=== PATIENT | female | born 1980 | race Two or more races ===

== ENCOUNTER → 2025-03-05 | Outpatient (CLI) | payer MEDICAID, SELFPAY ==
--- NOTE | 2025-03-05 15:00 | XR_ITS ---
Examination: CT abdomen with intravenous contrast CT pelvis with intravenous contrast 2-D coronal reconstructions 2-D sagittal reconstructions Date and time of exam:March 05, 2025, 1748 hours INDICATIONS: Bilateral flank pain beginning 3 months ago. CTDI: vol (mGy) 11.5 DLP: (mGycm) 675 Technique: Multiple axial sections of the abdomen and pelvis have been obtained. 64 slice high-resolution scanner used. 3 mm axial sections have been obtained, post intravenous injection 60 cc [id number]. 2-D sagittal, coronal reconstructions obtained. Low dose protocols were performed. One or more of the following dose reduction techniques were used; automated exposure control, adjustment of the mA and/or KV according to patient size, use of iterative reconstruction technique. Findings: No focal liver or splenic lesions No gallstones. No pancreatic mass. Medial 25 mm left renal cyst, 20 mm lower pole left renal cyst No renal or ureteral calculi, no hydronephrosis Aorta normal size No bowel obstruction Tiny fat-containing above for hernia. Normal appendix No diverticulitis. Anteverted uterus, no adnexal mass No bladder mass or bladder calculi Advanced degenerative disc disease L4-L5 IMPRESSION: Benign left renal cysts Normal appendix Advanced degenerative disc disease L4-L5
== END | disposition home or self-care (01) ==
PROVIDERS: Referring Provider Physician Assistant; Visit Provider Physician Assistant
DX: N28.1 Cyst of kidney, acquired (principal); M51.360 Other intervertebral disc degeneration, lumbar region with discogenic back pain only
CPT/HCPCS: 74177; A4649; Q9967